=== PATIENT | female | born 1955 | race Caucasian/White ===

== ENCOUNTER 2016-04-25 11:51 | Inpatient (IN) | payer OTHER ==
[~2016-04-25] VITALS: Ht 167.6 cm; Wt 74.0 kg
[~2016-04-25 11:51] MED LIST: ADVAIR HFA120 INHALA IH; AMBIEN5 MG PO; ANTIVERT12.5 MG PO; CIPROFLOXACIN500 M1 PO; CYCLOBENZAPRINE10 MG PO; DITROPAN XL10 MG PO; ERGOCALCIF50000 UNIT PO; FLEXERIL10 MG PO; LEVOFLOXACIN750 MG PO; MAGNESIUM250 MG PO; MAGNESIUM500 MG PO; MECLIZINE HCL12.5 M1 PO; NEURONTIN300 MG PO; OXYCODONE HCL10 MG PO; OXYCODONE-APAP1 EACH PO; PEN-VEE K,VEET500 MG PO; PERCOCET 5/31 TABLET PO; PERCOCET 7.51 TABLET PO; PRAVACHOL20 MG PO; PREDNISONE10 MG PO; PREDNISONE20 MG PO; PRILOSEC20 MG PO; PROVENTIL,2.5 MG/3 M IH; SPIRIVA RESPIMAT4 GM IH; TENORETIC 501 TABLET PO; ZANAFLEX2 M1 PO; ZITHROMAX Z-PA250 MG PO; ZOFRAN ODT4 MG PO
[2016-04-25 12:27] LABS: HEMATOCRIT 44.1 % (36.0-46.0); MCH 28.5 PG (29.0-34.0); MCHC 32.2 G/DL (30.0-36.0); MCV 88.6 FL (83-99); MEAN PLAT.VOLUME 11.4 uM^3 (9.5-12.4); PLATELET COUNT 229 K/uL (156-360); RBC DIS.WIDTH-CV 14.3 % (11.8-14.6); RBC DIS.WIDTH-SD 45.4 % (39-53); RED BLOOD COUNT 4.98 M/uL (3.80-5.20); WHITE BLOOD COUNT 18.5 K/uL (4.1-10.2)
[2016-04-25 12:43] LABS: CHLORIDE 100 mEq/L (99-109); POTASSIUM 3.6 mEq/L (3.7-5.4); SODIUM 137 mEq/L (136-147)
[2016-04-25 12:45] LABS: GLUCOSE 160 mg/dL (70-99)
[2016-04-25 12:46] LABS: ANION GAP 12 MEQ/L (2-14)
[2016-04-25 12:49] LABS: GFR ESTIMATE (CALCULATED) > 59 mL/min/; UREA NITROGEN (BUN) 12 mg/dL (9-23)
[2016-04-25 13:59] LABS: TROP-I INTERPRETATION POSITIVE
[2016-04-25 14:52] LABS: D-DIMER ELISA 0.85 mg/L FEU (< 0.57)
[2016-04-25] MEDS ORDERED: PREDNISOLONE AC15 ML BOTH EYES (15:02)
[2016-04-25] MEDS ORDERED: DIAZEPAM5 MG PO (15:05)
[2016-04-25] MEDS ORDERED: AMRIX15 MG PO (15:05)
[2016-04-25 15:50] LABS: INFLUENZA A VIRAL ANTIGEN NEGATIVE; INFLUENZA B VIRAL ANTIGEN NEGATIVE
[2016-04-25 17:31] VITALS: BP 133/62
[2016-04-25 17:46] VITALS: BP 133/62
[2016-04-25 20:00] VITALS: BP 122/66
[2016-04-25 20:58] LABS: TROP-I INTERPRETATION POSITIVE
[2016-04-25 21:24] LABS: TROPONIN-I 0.63 ng/mL (0.0-0.30)
[2016-04-25 23:55] VITALS: BP 110/65
[2016-04-26] VITALS (7 sets, daily range): BP systolic 84–122; BP diastolic 47–74
[2016-04-26 02:12] LABS: TROP-I INTERPRETATION INDETERMINATE; TROPONIN-I 0.44 ng/mL (0.0-0.30)
[2016-04-26 07:06] LABS: HEMATOCRIT 40.9 % (36.0-46.0); MCH 28.8 PG (29.0-34.0); MCV 89.9 FL (83-99); MEAN PLAT.VOLUME 12.2 uM^3 (9.5-12.4); PLATELET COUNT 209 K/uL (156-360); RBC DIS.WIDTH-CV 14.2 % (11.8-14.6); RBC DIS.WIDTH-SD 46.7 % (39-53); RED BLOOD COUNT 4.55 M/uL (3.80-5.20); WHITE BLOOD COUNT 17.6 K/uL (4.1-10.2)
[2016-04-26 07:30] LABS: ANION GAP 9 MEQ/L (2-14); CHLORIDE 105 MEQ/L (99-109); GFR ESTIMATE (CALCULATED) > 59 mL/min/; GLUCOSE 215 mg/dL (70-99); POTASSIUM 4.2 MEQ/L (3.7-5.4); SAMPLE HEMOLYSIS CHECK 0; SAMPLE ICTERIC CHECK 0; SAMPLE LIPEMIA CHECK 0; SODIUM 142 MEQ/L (136-147); UREA NITROGEN (BUN) 12 mg/dL (9-23)
[2016-04-26 07:39] LABS: TROP-I INTERPRETATION INDETERMINATE; TROPONIN-I 0.35 ng/mL (0.0-0.30)
[2016-04-26 17:11] LABS: TROP-I INTERPRETATION INDETERMINATE; TROPONIN-I 0.39 ng/mL (0.0-0.30)
[2016-04-26 22:16] LABS: TROP-I INTERPRETATION INDETERMINATE; TROPONIN-I 0.34 ng/mL (0.0-0.30)
[2016-04-27 04:44] VITALS: BP 113/65
[2016-04-27 04:47] LABS: BASOPHIL COUNT 0.1 K/uL (0-0.1); EOSINOPHIL (%) 1.8 % (0-5); EOSINOPHIL COUNT 0.2 K/uL (0-0.3); HEMATOCRIT 37.2 % (36.0-46.0); IMMATURE GRANULOCYTE (%) 1.5 % (0.0-0.7); IMMATURE GRANULOCYTE COUNT 1.7 K/uL; MCH 28.3 PG (29.0-34.0); MCHC 31.7 G/DL (30.0-36.0); MCV 89.2 FL (83-99); MEAN PLAT.VOLUME 11.4 uM^3 (9.5-12.4); MONOCYTE (%) 6.4 % (3-12); MONOCYTE COUNT 0.7 K/uL (0-0.8); NEUTROPHIL (%) 64.1 % (45-76); NEUTROPHIL COUNT 7.4 K/uL (1.8-6.4); PLATELET COUNT 200 K/uL (156-360); RBC DIS.WIDTH-CV 14.2 % (11.8-14.6); RBC DIS.WIDTH-SD 45.4 % (39-53); RED BLOOD COUNT 4.17 M/uL (3.80-5.20)
[2016-04-27 04:48] LABS: WHITE BLOOD COUNT 11.5 K/uL (4.1-10.2)
[2016-04-27 05:05] LABS: SODIUM 145 mEq/L (136-147); TROP-I INTERPRETATION NEGATIVE; TROPONIN-I 0.26 ng/mL (0.0-0.30)
[2016-04-27 05:06] LABS: GLUCOSE 124 mg/dL (70-99)
[2016-04-27 05:08] LABS: ANION GAP 6 MEQ/L (2-14)
[2016-04-27 05:10] LABS: CHLORIDE 113 mEq/L (99-109); GFR ESTIMATE (CALCULATED) > 59 mL/min/; POTASSIUM 3.2 mEq/L (3.7-5.4)
[2016-04-27 05:11] LABS: UREA NITROGEN (BUN) 11 mg/dL (9-23)
[2016-04-27 07:31] VITALS: BP 130/68
[2016-04-27 11:27] VITALS: BP 130/65
[2016-04-27 15:51] VITALS: BP 133/65
[2016-04-27 17:05] LABS: ANION GAP 7 MEQ/L (2-14); CHLORIDE 109 MEQ/L (99-109); GFR ESTIMATE (CALCULATED) > 59 mL/min/; GLUCOSE 129 mg/dL (70-99); POTASSIUM 3.7 MEQ/L (3.7-5.4); SAMPLE HEMOLYSIS CHECK 0; SAMPLE ICTERIC CHECK 0; SAMPLE LIPEMIA CHECK 0; SODIUM 143 MEQ/L (136-147); UREA NITROGEN (BUN) 10 mg/dL (9-23)
[2016-04-27 19:33] VITALS: BP 120/65
[2016-04-27 23:07] VITALS: BP 142/71
[2016-04-28 04:12] VITALS: BP 117/59
[2016-04-28 06:05] LABS: ANION GAP 6 MEQ/L (2-14); CHLORIDE 111 MEQ/L (99-109); GFR ESTIMATE (CALCULATED) > 59 mL/min/; GLUCOSE 102 mg/dL (70-99); POTASSIUM 4.3 MEQ/L (3.7-5.4); SAMPLE HEMOLYSIS CHECK 0; SAMPLE ICTERIC CHECK 0; SAMPLE LIPEMIA CHECK 0; SODIUM 144 MEQ/L (136-147); UREA NITROGEN (BUN) 9 mg/dL (9-23)
[2016-04-28 07:20] VITALS: BP 136/81
[2016-04-28 11:15] VITALS: BP 130/64
[2016-04-28 15:30] VITALS: BP 167/76
[2016-04-28 20:00] VITALS: BP 187/82
[2016-04-28 23:40] VITALS: BP 140/71
[2016-04-29 04:42] VITALS: BP 145/66
[2016-04-29 07:30] VITALS: BP 132/81
[2016-04-29] MEDS ORDERED: LEVAQUIN750 MG PO (13:37)
[2016-04-29] MEDS ORDERED: ADVAIR HFA120 INHALA IH (13:37)
[2016-04-29] MEDS ORDERED: PROAIR RESPICL90 MCG IH (13:37)
== END 2016-04-29 14:29 | disposition home health service (06) | DRG 190 ==
LOC: EME 11:51 → 4EAST 14:43 → EDOF 14:43 → 4EAST 17:14
PROVIDERS: Emergency Medicine; Family Medicine; Internal Medicine Cardiovascular Disease; Physician Assistant; Physician Assistant Medical
DX: J44.0 Chronic obstructive pulmonary disease with (acute) lower respiratory infection (principal); J96.21 Acute and chronic respiratory failure with hypoxia; J44.1 Chronic obstructive pulmonary disease with (acute) exacerbation; R07.89 Other chest pain; J20.9 Acute bronchitis, unspecified; R74.8 Abnormal levels of other serum enzymes; I10 Essential (primary) hypertension; E78.5 Hyperlipidemia, unspecified; G89.29 Other chronic pain; M54.9 Dorsalgia, unspecified; E87.6 Hypokalemia; Z87.891 Personal history of nicotine dependence; E66.9 Obesity, unspecified; Z79.891 Long term (current) use of opiate analgesic; R94.31 Abnormal electrocardiogram [ECG] [EKG]; Z68.26 Body mass index [BMI] 26.0-26.9, adult
CPT/HCPCS: 71010; 71020; 71275; 80048; 80048 91; 83605; 83880; 84484; 85025; 85027; 85379; 87040; 87502; 93005; 93306; 94640; 94640 76; 94799; 99202; 99281; 99285; J1650; J2543; J7030; J7050; J7512